=== PATIENT | female | born 1995 | race Caucasian/White ===

== ENCOUNTER 2022-02-04 16:37 | Emergency (ER) | payer OTHER ==
[~2022-02-04] VITALS: Ht 170.2 cm; Wt 150.0 kg
[2022-02-04 17:15] VITALS: BP 154/110
[2022-02-04] MEDS ORDERED: ibuprofen tablet 400 MG TABLET PO ONE (18:30)
[2022-02-04] MEDS ORDERED: acetaminophen 325mg tablet PO ONE (18:30)
== END 2022-02-04 19:19 | disposition home or self-care (01) ==
LOC: ER 16:38
DX: S93.409A Sprain of unspecified ligament of unspecified ankle, initial encounter (principal); M79.601 Pain in right arm; Z88.0 Allergy status to penicillin; W19.XXXA Unspecified fall, initial encounter; Y93.89 Activity, other specified; Y92.89 Other specified places as the place of occurrence of the external cause; Y99.8 Other external cause status
CPT/HCPCS: 73130; 73610; 99284